=== PATIENT | male | born 1965 | race Caucasian/White ===

== ENCOUNTER → 2021-06-22 09:10 | Outpatient (CLI) | payer BC, SELFPAY ==
--- NOTE | ~2021-06-22 | XR_ITS ---
EXAMINATION: XR abdomen/kub 1V INDICATION: Calculus of kidney TECHNIQUE: Supine views of the abdomen were obtained on 2 radiographs. COMPARISON: None FINDINGS: There appears to be a subtle 5 mm calcification of the left kidney lower pole. A 3 mm left pelvic calcification could reflect a phlebolith. The bowel gas pattern is normal. Surgical changes ar e noted in the left upper quadrant. No definite additional urolithiasis is identified. IMPRESSION: 1. Possible left nephrolithiasis. 2. Left pelvic calcification, likely phlebolith. Correlate for left flank pain. Reviewed, dictated and finalized at location A. STRIAL DESIGNER
== END ==
DX: N20.0 Calculus of kidney (principal)
CPT/HCPCS: 74018

== ENCOUNTER → 2022-06-25 07:40 | Outpatient (CLI) | payer BC, SELFPAY ==
--- NOTE | ~2022-06-25 | XR_ITS ---
XR abdomen/kub 1V 06/25/2022 07:53 Indication: Renal stones Procedure: KUB Comparison: 06/22/2021 Findings: Bowel gas pattern is nonobstructive. Moderate colonic fecal loading. No abnormal calcificat ions. Lung bases unremarkable. There is dextroscoliosis of the lumbar spine. No acute osseous abnorma lity. There are pelvic phleboliths. Impression: 1: No acute abdominal abnormality. Reviewed, dictated and finalized at location A. SCHOOL MUSIC TEACHER Impression: 1: No acute abdominal abnormality.
== END ==
DX: N20.0 Calculus of kidney (principal)
CPT/HCPCS: 74018

== ENCOUNTER → 2023-08-04 07:37 | Outpatient (CLI) | payer BC, SELFPAY ==
--- NOTE | ~2023-08-04 | XR_ITS ---
EXAMINATION: XR abdomen/kub 1V DATE: 08/04/2023 08:15 INDICATION: Calculus of kidney. TECHNIQUE: A supine view of the abdomen on 2 radiographs was obtained. COMPARISON: Abdomen radiograph 06/25/22 FINDINGS: There are no dilated loops of bowel. There is a moderate volume of stool in the colon. Thes e are obscured by bowel. There is a phlebolith in left pelvis. IMPRESSION: 1. No visible urolithiasis. Reviewed, dictated and finalized at location E. UMER ANALYST IMPRESSION: 1. No visible urolithiasis.
== END ==
DX: N20.0 Calculus of kidney (principal)
CPT/HCPCS: 74018